=== PATIENT | female | born 1980 | race Caucasian/White ===

== ENCOUNTER → 2020-01-16 | Outpatient (CLI) | payer BC ==
[~2020-01-16] MED LIST: FERROUS GLUCONA27 MG; LO/OVRAL1 TAB PO; MOTRIN 600600 MG/TAB PO; OSCAL 500 TAB500 MG PO; PEPCID 20MG TAB20 MG PO; PERCOCET 325 MG1 TA2 PO; PHENERGAN 25 TA25 MG PO; PHENERGAN25 MG/ML IM; PRENATAL VITAMI1 TA5 PO; ROCEPHIN2 GM IV; TORADOL30 MG/ML IV; TYLENOL EXTRA500 M1 PO; VANCOCIN HCL1 GM IV; ZOFRAN INJ4 MG/2 ML IV; ZOVIRAX800 MG PO
== END ==
LOC: ZCOL.LAB 16:10
DX: U07.1 COVID-19 (principal)

== ENCOUNTER → 2020-11-06 | Outpatient (CLI) | payer BC | LOC: MC.RAD 16:24 | DX: Z12.31 Encounter for screening mammogram for malignant neoplasm of breast (principal) ==